=== PATIENT | female | born 1965 | race African-American/Black ===

== ENCOUNTER 2024-08-15 02:12 | Inpatient (IN) | payer OTHER ==
[~2024-08-15] VITALS: Ht 175.3 cm; Wt 69.9 kg
[~2024-08-15 02:12] MED LIST: ALBU18HF2 IH; AZIT500T8 MT; P50 MT
[2024-08-15] MEDS: MORPHINE SULFATE 4 MG/ML INJ (FOR IV/IM USE) IV STA ×2 (02:57→04:00)
[2024-08-15] MEDS: ONDANSETRON HCL 4MG/2ML INJ IV STA ×2 (02:58→04:00)
[2024-08-15 03:10] LABS: BASOPHILS % 1.3 % (0.0-2.0); DIFFERENTIAL COMMENT 0; EOSINOPHILS % 1.6 % (0.0-5.0); HEMATOCRIT. 34.7 % (36.0-48.0); HEMOGLOBIN. 11.5 g/dL (12.0-16.0); LYMPHOCYTES % 17.6 % (20.0-50.0); MEAN CORPUSCULAR HEMOGLOBIN 26.1 pg (28.0-32.0); MEAN CORPUSCULAR HGB CONC 33.1 g/dL (31.0-37.0); MEAN CORPUSCULAR VOLUME 78.7 fL (81.0-99.0); MEAN PLATELET VOLUME 8.9 fl (7.4-10.4); NEUTROPHILS % 67.5 % (40.0-76.0); PLATELET 219 x1000/uL (130-400); RED CELL DISTRIBUTION WIDTH 19.8 % (11.6-14.6); WHITE BLOOD COUNT 7.4 x1000/uL (4.5-11.0)
[2024-08-15 03:13] LABS: CHLORIDE 104 mEq/L (98-107); POTASSIUM 4.5 mEq/L (3.5-5.1); SODIUM 138 mEq/L (136-145)
[2024-08-15 03:14] LABS: CALCIUM 9.3 mg/dL (8.7-10.4); CARBON DIOXIDE 27 mEq/L (21-32)
[2024-08-15 03:19] LABS: GLUCOSE 99 mg/dL (70-105); UREA NITROGEN BLOOD 29 mg/dL (9-23)
[2024-08-15 04:08] LABS: CREATININE 1.8 mg/dL (0.6-1.0)
[2024-08-15 04:09] LABS: TROPONIN I HIGH SENSITIVITY 189 ng/L (3.0-34)
[2024-08-15] MEDS: ONDANSETRON HCL 4MG/2ML INJ IV ONE (04:30)
[2024-08-15] MEDS ORDERED: HYDROMORPHONE HCL/PF 2MG/ML INJ IV ONE (04:30)
[2024-08-15] MEDS: LORAZEPAM 2MG/ML INJ IV ONE (04:32)
[2024-08-15] MEDS: HYDROMORPHONE HCL/PF 2MG/ML INJ IV NR (04:43)
[2024-08-15] MEDS ORDERED: NALOXONE HCL 0.4MG/ML VIAL IV PRN (09:30)
[2024-08-15] MEDS: FOLIC ACID/VITAMIN B COMP W-C TABLET PO SCH (10:19)
[2024-08-15] MEDS: AMLODIPINE 10MG TABLET PO SCH (10:19)
[2024-08-15] MEDS ORDERED: ONDANSETRON HCL 4MG/2ML INJ IV PRN (11:45)
[2024-08-15] MEDS ORDERED: IPRATROPIUM/ALBUTEROL 0.5-3(2.5)MG/3ML NEB HHN PRN (11:45)
[2024-08-15] MEDS ORDERED: ACETAMINOPHEN 325MG TABLET PO PRN ×2 (11:45)
[2024-08-15] MEDS ORDERED: DOCUSATE SODIUM 100MG CAPSULE PO PRN (11:45)
[2024-08-15] MEDS: SEVELAMER CARBONATE 800 MG TABLET PO SCH (11:52)
[2024-08-15] MEDS: FUROSEMIDE 40MG/4ML VIAL IVP NR (13:23)
[2024-08-15] MEDS: ENOXAPARIN 30MG/0.3ML SYR SUBCUT SCH (13:23)
[2024-08-15] MEDS: SODIUM CHLORIDE 0.45% 1,000 ML IV SCH (13:23)
[2024-08-15 15:41] LABS: BG BASE EXCESS -0.2 mmol/L (-2.0-3.0); BG CARBOXYHEMOGLOBIN 1.4 % (0.5-1.5); BG DEOXYHEMOGLOBIN 14.8 % (0.0-5.0); BG FRACTION INSPIRED OXYGEN 21; BG HCO3 ACT 24.8 mmol/L (21.0-28.0); BG METHEMOGLOBIN 0.3 % (0.5-1.5); BG OXYGEN SATURATION 84.9 % (94.0-98.0); BG OXYHEMOGLOBIN 83.5 % (94.0-98.0); BG PCO2 41.7 mmHg (32.0-45.0); BG PH 7.392 (7.350-7.450); BG SAMPLE SITE RIGHT RADIAL; BG TOTAL HEMOGLOBIN 12.6 g/dL (12.0-16.0); BG VENT MODE ROOM AIR
[2024-08-15 16:00] VITALS: BP 147/99; PULSE 99; RESP 20; TEMP 36.6696; O2SAT 99
[2024-08-15] MEDS: CLONIDINE 0.1MG TABLET PO PRN (16:18)
[2024-08-15] MEDS ORDERED: IPRATROPIUM/ALBUTEROL 0.5-3(2.5)MG/3ML NEB HHN ONE (16:45)
[2024-08-15] MEDS: HYDROCODONE/ACETAMINOPHEN 5/325MG TABLET PO PRN (18:58)
[2024-08-15 19:02] VITALS: BP 147/99; PULSE 99; RESP 20; TEMP 36.6404
[2024-08-15 20:12] VITALS: BP 135/109; PULSE 76; TEMP 98; O2SAT 97
[2024-08-16] MEDS ORDERED: PANTOPRAZOLE SODIUM 40 MG/VIAL IV SCH (09:00)
[2024-08-16] MEDS ORDERED: ASPIRIN 81MG TABLET PO SCH (09:00)
== END 2024-08-15 21:40 | disposition short-term general hospital (02) | DRG 194 ==
LOC: ER 02:12 → 5WST 05:57 → 7EST 15:04
PROVIDERS: ADMIT Internal Medicine; ATTEND Internal Medicine
DX: I13.2 Hypertensive heart and chronic kidney disease with heart failure and with stage 5 chronic kidney disease, or end stage renal disease (principal); G93.40 Encephalopathy, unspecified; I21.A1 Myocardial infarction type 2; N17.9 Acute kidney failure, unspecified; D64.9 Anemia, unspecified; E86.9 Volume depletion, unspecified; E03.9 Hypothyroidism, unspecified; E78.5 Hyperlipidemia, unspecified; I49.1 Atrial premature depolarization; G89.29 Other chronic pain; I50.22 Chronic systolic (congestive) heart failure; M16.11 Unilateral primary osteoarthritis, right hip; N18.6 End stage renal disease; Z99.2 Dependence on renal dialysis; Z91.158 Patient's noncompliance with renal dialysis for other reason
CPT/HCPCS: 36415; 36600; 71045; 72192; 73502; 73551; 76770; 80048; 82375; 82805; 83880; 84484; 85025; 93005; 99285; J1171; J1650; J1940; J2060; J2270; J2405

== ENCOUNTER 2024-10-20 19:21 | Emergency (ER) | payer OTHER ==
[~2024-10-20] VITALS: Ht 170.2 cm; Wt 73.0 kg
[~2024-10-20 19:21] MED LIST changes: -AZIT500T8 MT; +COR3 MT; +FURO20TA4 MT; -P50 MT
[2024-10-20 19:27] VITALS: TEMP 98.9; O2SAT 100
[2024-10-20] MEDS: ONDANSETRON HCL 4MG/2ML INJ IV ONE (20:46)
[2024-10-20] MEDS: MORPHINE SULFATE 4 MG/ML INJ (FOR IV/IM USE) IV ONE (20:47)
[2024-10-20 21:15] LABS: BASOPHILS % 1.1 % (0.0-2.0); EOSINOPHILS % 0.2 % (0.0-5.0); HEMATOCRIT. 31.7 % (36.0-48.0); HEMOGLOBIN. 10.5 g/dL (12.0-16.0); LYMPHOCYTES % 11.6 % (20.0-50.0); MEAN CORPUSCULAR HEMOGLOBIN 27.7 pg (28.0-32.0); MEAN CORPUSCULAR VOLUME 84.1 fL (81.0-99.0); MEAN PLATELET VOLUME 8.1 fl (7.4-10.4); NEUTROPHILS % 76.1 % (40.0-76.0); PLATELET 463 x1000/uL (130-400); RED BLOOD CELL COUNT 3.77 mill/uL (4.2-5.4); RED CELL DISTRIBUTION WIDTH 20.5 % (11.6-14.6); WHITE BLOOD COUNT 9.8 x1000/uL (4.5-11.0)
[2024-10-20 21:28] LABS: CHLORIDE 105 mEq/L (98-107); POTASSIUM 3.4 mEq/L (3.5-5.1); SODIUM 141 mEq/L (136-145)
[2024-10-20 21:29] LABS: CARBON DIOXIDE 26 mEq/L (21-32)
[2024-10-20 21:34] LABS: CREATININE 1.4 mg/dL (0.6-1.0); GLUCOSE 98 mg/dL (70-105); UREA NITROGEN BLOOD 34 mg/dL (9-23)
[2024-10-20 21:46] LABS: TROPONIN I HIGH SENSITIVITY 79 ng/L (3.0-34)
[2024-10-20] MEDS: ASPIRIN 325MG EC TABLET PO ONE (23:44)
[2024-10-21 01:06] VITALS: BP 117/99; PULSE 99; RESP 18; O2SAT 97
[2024-10-21 01:50] LABS: TROPONIN I HIGH SENSITIVITY 75 ng/L (3.0-34)
== END 2024-10-21 01:08 | disposition short-term general hospital (02) ==
LOC: ER 19:21 → EDBEDREQ 20:14 → ER 10-21 01:08
DX: M25.551 Pain in right hip (principal); I12.0 Hypertensive chronic kidney disease with stage 5 chronic kidney disease or end stage renal disease; N18.6 End stage renal disease; Z79.899 Other long term (current) drug therapy; Z99.2 Dependence on renal dialysis
CPT/HCPCS: 80048; 83880; 85025; 84484 ×2; 36415; 93005; 96374; 96375; 99285; J2405; J2270; Z7610 ×3

== ENCOUNTER 2025-02-06 12:41 | Emergency (ER) | payer OTHER ==
[~2025-02-06] VITALS: Ht 170.2 cm; Wt 46.0 kg
[~2025-02-06 12:41] MED LIST changes: +AMI2 PO; +APIX2.5T MT; +FURO-151 MT; +HYDR-4001 MT; +LEVO50TA8 PO; +METO5TAB7 PO; +METR375C2 PO; +MIDO5TAB4 PO; +POTA-204 PO
[2025-02-06 12:45] VITALS: O2SAT 94
[2025-02-06] MEDS: MORPHINE SULFATE 4 MG/ML INJ (FOR IV/IM USE) IV STA (14:23)
[2025-02-06] MEDS: SODIUM CHLORIDE 0.9% 1,000 ML IV ONE (14:27)
[2025-02-06 14:36] LABS: BASOPHILS % 0.7 % (0.0-2.0); DIFFERENTIAL COMMENT 0; EOSINOPHILS % 0.3 % (0.0-5.0); HEMATOCRIT. 29.6 % (36.0-48.0); HEMOGLOBIN. 9.3 g/dL (12.0-16.0); LYMPHOCYTES % 9.9 % (20.0-50.0); MEAN CORPUSCULAR HEMOGLOBIN 24.6 pg (28.0-32.0); MEAN CORPUSCULAR HGB CONC 31.2 g/dL (31.0-37.0); MEAN CORPUSCULAR VOLUME 78.7 fL (81.0-99.0); MEAN PLATELET VOLUME 7.2 fl (7.4-10.4); MONOCYTES % 7.9 % (2.0-8.0); NEUTROPHILS % 81.2 % (40.0-76.0); PLATELET 648 x1000/uL (130-400); RED BLOOD CELL COUNT 3.76 mill/uL (4.2-5.4); RED CELL DISTRIBUTION WIDTH 18.6 % (11.6-14.6); WHITE BLOOD COUNT 13.7 x1000/uL (4.5-11.0)
[2025-02-06 14:38] LABS: INR 1.1; PROTHROMBIN TIME 11.9 sec (9.6-11.0)
[2025-02-06 14:41] LABS: CHLORIDE 98 mEq/L (98-107); POTASSIUM 3.5 mEq/L (3.5-5.1); SODIUM 139 mEq/L (136-145)
[2025-02-06 14:42] LABS: CALCIUM 9.3 mg/dL (8.7-10.4); CARBON DIOXIDE 31 mEq/L (21-32)
[2025-02-06 14:46] LABS: CREATININE 1.3 mg/dL (0.6-1.0)
[2025-02-06 14:47] LABS: GLUCOSE 101 mg/dL (70-105); UREA NITROGEN BLOOD 58 mg/dL (9-23)
[2025-02-06 14:48] LABS: ALANINE AMINOTRANSFERASE < 7 IU/L (10-49)
[2025-02-06 14:49] LABS: ALBUMIN 3.9 g/dL (3.2-4.8); ASPARTATE AMINOTRANSFERASE 11 IU/L (<34); BILIRUBIN DIRECT 0.1 mg/dL (<=3.0); BILIRUBIN TOTAL 0.4 mg/dL (0.1-1.0); PROTEIN TOTAL 8.4 g/dL (6.0-8.3)
[2025-02-06] MEDS ORDERED: PIPERACILLIN/TAZO 3.375G/100ML 100 ML IV STA (15:05)
[2025-02-06] MEDS ORDERED: VANCOMYCIN 1000MG/250ML 250 ML IV STA (15:05)
[2025-02-06] MEDS ORDERED: VANCOMYCIN 1G PREMIX 200 ML IV STA (15:14)
[2025-02-06] MEDS ORDERED: VANCOMYCIN 1G PREMIX 200 ML IV NR (15:30)
[2025-02-06] MEDS: PIPERACILLIN/TAZO 3.375G/50ML 50 ML IV NR (15:38)
[2025-02-06] MEDS: MORPHINE SULFATE 4 MG/ML INJ (FOR IV/IM USE) IV ONE (15:39)
[2025-02-06 16:39] VITALS: BP 98/77; PULSE 99; RESP 16; TEMP 36.9; O2SAT 100
== END 2025-02-06 16:52 | disposition short-term general hospital (02) ==
LOC: ER 12:41
DX: L89.159 Pressure ulcer of sacral region, unspecified stage (principal); L03.818 Cellulitis of other sites; I12.0 Hypertensive chronic kidney disease with stage 5 chronic kidney disease or end stage renal disease; N18.6 End stage renal disease; E03.9 Hypothyroidism, unspecified; N17.9 Acute kidney failure, unspecified; Z79.01 Long term (current) use of anticoagulants; Z79.899 Other long term (current) drug therapy; Z99.2 Dependence on renal dialysis
CPT/HCPCS: 80076; 80048; 83605; 85025; 85610; 87040; 87186; 87077; 36415; 93005; 96361; 96365; 96375; 99285; J2543; J2270; J7030; Z7610 ×3; A4606; J3370